=== PATIENT | female | born 1990 | race Caucasian/White ===

== ENCOUNTER → 2017-02-14 | Outpatient (CLI) | payer OTHER ==
--- NOTE | 2017-02-14 14:00 | US ---
EXAMINATION TYPE: US OB anatomy transabd DATE OF EXAM: 02/14/2017 1:14 PM COMPARISON: NONE HISTORY: O36.62XO Large For Dates Anatomy. Has not had an ultrasound yet with this TECHNIQUE: Transabdominal (TA) EXAM MEASUREMENTS: GESTATIONAL AGE / DATING Dates by LMP: (18 weeks/4 days) EDC: 07/14/2017 Dates by Current Scan: (17 weeks/4 days) EDC: 07/21/2017 SURVEY IUP: Single PLACENTA: Posterior PREVIA: No previa MAURICIO: 12.2 cm Normal CERVICAL LENGTH (transabdominal: norm > 3.0cm): 3.6 cm BIOMETRY PRESENTATION: Vertex LIE: Transverse lie with head maternal Left BPD: 3.8 cm 17 weeks / 5 days HC: 14.2 cm 17 weeks / 3 days AC: 11.9 cm 17 weeks / 4 days FL: 2.5 cm 17 weeks / 3 days ESTIMATED WEIGHT IN GRAMS: 198.7 grams ESTIMATED WEIGHT IN LBS/OZS: 0 lbs. 7 oz. WEIGHT PERCENTAGE BASED ON ESTABLISHED DATE: 5.2 % HC/AC: 1.2 FL/AC: 20.8 HEART RATE: 155 bpm RHYTHM: Normal ANATOMY SEEN (within normal limits): * Lateral Vent (< 1 cm) 0.8 cm * Cisterna Magna (< 1.1 cm) 0.3 cm * Nuchal Fold (< 0.6 cm) 0.2 cm * Cerebellum (varies with age) 1.8 cm Midline Falx Cavus Septi Pellucidi Stomach Situs Nose / Lips Diaphragm Kidneys (bilateral) Bladder Cord Insert Three Vessel Cord Longitudinal Spine Transverse Spine Arms (bilateral) Legs (bilateral) ANATOMY SEEN (does not appear within normal limits): Choroid Plexus (bilateral) ANATOMY NOT SEEN: Four Chamber Heart Outflow tracts: LVOT/RVOT Impression: Live single IUP seen measuring 17 weeks 4 days. Two cystic lesions seen in choroid plexus measuring 0.4 x 0.3 cm and 0.3 x 0.3 cm. Heart not well visualized due to early gestational age. OB callback scheduled for February 28.
== END | disposition home or self-care (01) ==
LOC: RADUSWWP 12:17
PROVIDERS: ATTEND Obstetrics & Gynecology
DX: O35.0XX0 Maternal care for (suspected) central nervous system malformation in fetus, not applicable or unspecified (principal); Z3A.17 17 weeks gestation of pregnancy
CPT/HCPCS: 76811

== ENCOUNTER → 2017-02-28 | Outpatient (CLI) | payer OTHER ==
--- NOTE | 2017-02-28 14:38 | US ---
EXAMINATION TYPE: US OB Call Back DATE OF EXAM: 02/28/2017 11:14 AM COMPARISON: Initial survey 02/14/2017 CLINICAL HISTORY: 26-year-old female rescan ANATOMY. Assess heart structures. TECHNIQUE: Transabdominal scanning. FINDINGS: GESTATIONAL AGE / DATING Dates by Initial Survey Scan: (19 weeks/4 days) EDC: 07/21/2017 HEART RATE: 170 bpm RHYTHM: Normal ANATOMY SEEN (second anatomic survey look): Four Chamber Heart LVOT ANATOMY SEEN BUT DOES NOT APPEAR NORMAL: Choroid Plexus (bilateral): single posterior (right) choroid cyst seen = 6mm vs two seen previously measuring up to 4 mm. ANATOMY SUBOPTIMALLY VISUALIZED: RVOT IMPRESSION: 1. Now, a single choroid plexus cyst is seen measuring 6 mm versus the two previous cysts measuring u p to 4 mm. While choroid plexus cysts can serve as a soft marker for aneuploidy, they often resolve s pontaneously at 24 weeks. Further genetics consultation as clinically indicated. 2. The RVOT remains suboptimally visualized on the provided images. The lump roller notes normal appe arance during real-time scanning. 3. Otherwise, the four-chamber heart and LVOT appear normal.
== END | disposition home or self-care (01) ==
LOC: RADUSWWP 10:42
PROVIDERS: ATTEND Obstetrics & Gynecology
DX: Q04.6 Congenital cerebral cysts (principal)

== ENCOUNTER 2017-07-10 08:00 | Inpatient (IN) | payer OTHER ==
--- NOTE | 2017-07-09 20:19 | P.HPOB ---
History of Present Illness H&P Date: 07/09/17 Chief Complaint: Scheduled repeat cesaren with bilateral tubal ligation This is a 26 y.o. female, 2, para 1, with an estimated date of confinement of 07/14/2017, estimated gestational age of 39-3/7 weeks, who presents for repeat section with bilateral tubal ligation. She admits to good movement and irregular contractions. She denies rupture of membranes. course has been complicated by anxiety. labs: Rubella-immune RPR-NR HIV-NR Blood type-A+ Antibody screen-neg Random glucose-89 Hemoglobin-13.2 Quad-neg 1 hr. 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 Social Hx: Single, unemployed. Review of Systems Constitutional: Denies chills, Denies fever Eyes: denies blurred vision, denies pain Ears, nose, mouth and throat: Denies headache, Denies sore throat Cardiovascular: Denies chest pain, Denies shortness of breath Respiratory: Denies cough Gastrointestinal: Reports abdominal pain (irreg. contractions) Genitourinary: Reports pelvic pain, Reports Musculoskeletal: Reports low back pain Integumentary: Denies pruritus, Denies rash Neurological: Denies numbness, Denies weakness Psychiatric: Reports anxiety Past Medical History Past Medical History: GERD/Reflux History of Any Multi-Drug Resistant Organisms: None Reported Past Surgical History: Section Additional Past Surgical History / Comment(s): wisdom teeth removed in 2005 Past Anesthesia/Blood Transfusion Reactions: No Reported Reaction Past Psychological History: Anxiety Smoking Status: Never smoker Past Alcohol Use History: None Reported Past Drug Use History: None Reported - Past Family History Mother Family Medical History: Thyroid Disorder Medications and Allergies Home Medications Medication Instructions Recorded Confirmed Type Acyclovir 400 mg PO BID PRN 04/22/14 07/04/17 History Abu-Gthf-Lkwlj Acid 1 caplet PO DAILY 04/29/14 07/04/17 History [-U Capsule (formulary)] Allergies Allergy/AdvReac Type Severity Reaction Status Date / Time egg AdvReac Nausea & Verified 07/04/17 15:51 Vomiting & Diarrhea lactose AdvReac Nausea & Verified 07/04/17 15:51 Vomiting & Diarrhea Exam Osteopathic Statement: *. No significant issues noted on an osteopathic structural exam other than those noted in the History and Physical/Consult. HEENT: within normal limits Heart: regular rate and rhythm Lungs: clear to auscultation bilaterally Abdomen: heart tones: 140's by doppler Extremities: Neg. Trinh's Cervix: 1 cm/50%/-2. Assessment and Plan (1) 39 weeks gestation of Status: Acute (2) Family planning Status: Acute Plan: Proceed with repeat low transverse section with bilateral partial salpingectomy. I have discussed the risks, benefits, and alternative therapies for the above- mentioned procedure and for both sedation/anesthesia as well as necessary blood products administration, if indicated, as they pertain to this patient. The patient has indicated her understanding and acceptance of the risks and procedures discussed.
[2017-07-10] MEDS ORDERED: LACTATED RINGERS 1,000 ML IV SCH (11:06)
[2017-07-10] MEDS ORDERED: CITRIC ACID-SODIUM CITRATE 15 ML CUP PO ONE (11:06)
[2017-07-10] MEDS ORDERED: LIDOCAINE 1% 20 ML VIAL (10MG/ML) FOR IV START INTRADERMA PRN (11:06)
[2017-07-10] MEDS ORDERED: ceFAZolin 2 GM in SODIUM CHLORIDE 0.9% 100 ML IVPB ONE (11:06)
[2017-07-10 11:15] LABS: Basophils % (A) 0 %; CH 28.6; CHCM 33.4; Eosinophils # (A) 0.3 k/uL (0-0.7); Eosinophils % (A) 3 %; HCT 34.5 % (34.0-46.0); HDW 2.86; HGB 12.1 gm/dL (11.4-16.0); Luc # (Auto) 0.24; Luc % (Auto) 2; Lymphocytes # (A) 1.9 k/uL (1.0-4.8); Lymphocytes % (A) 16 %; MCH 30.2 pg (25.0-35.0); MCHC 35.1 g/dL (31.0-37.0); MCV 86.2 fL (80.0-100.0); Mean Platelet Volume 8.6; Monocytes # (A) 0.6 k/uL (0-1.0); Monocytes % (A) 5 %; Neutrophils # (A) 8.6 k/uL (1.3-7.7); Neutrophils % (A) 73 %; RBC 4.01 m/uL (3.80-5.40); RDW 13.3 % (11.5-15.5); WBC 11.7 k/uL (3.8-10.6); WBC (Perox) 11.82
[2017-07-10] MEDS: LACTATED RINGERS 1,000 ML IV ONE ×2 (11:28→11:51)
[2017-07-10 12:19] VITALS: BMI 23.6
[2017-07-10] MEDS ORDERED: fentaNYL (PF) 50 MCG/ML 2 ML AMP ONE (12:19)
[2017-07-10] MEDS ORDERED: MORPHINE SULFATE (PF) 0.3 MG/0.3 ML SYR ONE (12:19)
[2017-07-10] MEDS ORDERED: OXYTOCIN 10 UNIT/ML 1 ML VIAL ONE (12:19)
[2017-07-10] MEDS ORDERED: ONDANSETRON 4 MG/2 ML VIAL ONE (12:19)
[2017-07-10] MEDS ORDERED: KETOROLAC 30 MG/ML 1 ML VIAL ONE (12:19)
[2017-07-10] MEDS ORDERED: NALBUPHINE 10 MG/ML AMPUL ONE (12:19)
[2017-07-10] MEDS ORDERED: diphenhydrAMINE 50 MG/ML 1 ML VIAL IVP PRN ×3 (12:58→13:24)
[2017-07-10] MEDS ORDERED: NALOXONE 0.4 MG/ML 1 ML VIAL IV PRN ×2 (12:58→13:24)
[2017-07-10] MEDS ORDERED: ONDANSETRON 4 MG/2 ML VIAL IVP PRN ×2 (12:58→13:24)
[2017-07-10] MEDS ORDERED: KETOROLAC 30 MG/ML 1 ML VIAL IVP PRN ×2 (12:58→13:24)
--- NOTE | 2017-07-10 13:12 | P.OP ---
Date of Procedure: 07/10/17 Preoperative Diagnosis: 1. Intrauterine at 39-3/7 weeks. 2. History of previous section. 3. Family-planning. Postoperative Diagnosis: Same plus breech presentation Procedure(s) Performed: Repeat low transverse section with bilateral partial salpingectomy Implants: Anesthesia: spinal (Duramorph) Surgeon: Ruchi Merritt Upscale Security Officer #1: Yvette Mckinney Estimated Blood Loss (ml): 400 Pathology: other (Placenta, portions of right and left fallopian tubes) Condition: stable Disposition: floor Indications for Procedure: This is a 26-year-old female 2 para 1 at 39-3/7 weeks who presents to labor and delivery for scheduled repeat section with bilateral partial salpingectomy. I have discussed the risks, benefits, and alternative therapies for the above- mentioned procedure and for both sedation/anesthesia as well as necessary blood products administration, if indicated, as they pertain to this patient. The patient has indicated her understanding and acceptance of the risks and procedures discussed. Operative Findings: A viable female infant is noted in the jill breech presentation with scores of 8 at 1 minute and 9 at 5 minutes and infant weight of 6 lbs. 9 oz. Normal uterus tubes and ovaries are noted. Description of Procedure: The patient is taken to the operating room where she is placed in the dorsal supine position with leftward tilt after spinal Duramorph anesthesia is given. She is prepped and draped in the normal sterile fashion. Skin was tested and found to be adequately anesthetized. A Pfannenstiel skin incision was made with a scalpel removing the previous laparotomy scar. A second knife was used to carry the incision down to the underlying layer of fascia. The fascia was nicked in the midline with a scalpel and then extended laterally bilaterally with Guthrie scissors. The anterior lip of the fascia was grasped with 2 Elida clamps and then dissected off the underlying rectus muscle in the midline with Guthrie scissors. The inferior aspect of the fascial incision was grasped with 2 Elida clamps and dissected off the underlying rectus muscle and the midline with Guthrie scissors. Next the peritoneum layer was tented up with 2 hemostats and then entered sharply with the scalpel. The incision is extended superiorly and inferiorly with Metzenbaum scissors. Next a DeLee retractor is placed. The vesicouterine peritoneum is entered sharply with Metzenbaum scissors and extended laterally bilaterally with Metzenbaum scissors and then the bladder flap is pushed inferiorly. The lower uterine segment is incised in transverse fashion with the scalpel and then bluntly entered with a hemostat. Clear fluid is noted. The incision was then extended laterally bilaterally with 2 fingers. Next the 's buttocks is delivered through the incision low by each leg and each arm in a flexed position. Next the head is delivered in a flexed position and nose and mouth are bulb suctioned after delivery. Cord is clamped and cut. is taken to warmer by nursing staff. Uterine fundus is gently massaged and placenta is delivered manually. Uterus is exteriorized and cleared of all clots and debris. Uterine incision is closed with 0 Vicryl suture in a running locked fashion. A second layer of 0 Vicryl suture is used in a running fashion for hemostasis. Once adequate hemostasis as assured, the vesicouterine peritoneum is reapproximated with 2-0 Vicryl suture in a running fashion. Posterior cul-de-sac is suctioned of all clots and debris. Next attention is turned to the fallopian tubes. The right fallopian tube is grasped in the midportion with a hemostat. The mesosalpinx is entered with Bovie cautery. Next 0 Vicryl suture is tied 2 times around both the proximal and distal portion of the tube. The knuckle of tube was then removed with Metzenbaum scissors. The ends of the tubes are cauterized with Bovie cautery. Excellent hemostasis is noted. Next the same procedure is carried out on the left fallopian tube. Excellent hemostasis is noted. Uterus is returned to the abdomen. Incision is noted to be hemostatic. Both sites are noted to be hemostatic. Peritoneal layer is closed with 0 Vicryl suture in a running fashion. Muscle layer is reapproximated with 0 Vicryl suture in interrupted fashion. Fascia layer is then closed with 0 PDS suture with 2 sutures meeting in the midline and the knots buried in either side and in the midline. The subcutaneous tissue was then closed with 2-0 Vicryl suture. Skin layer was then closed with karyna. All sponge and needle counts are correct. The patient is taken to recovery room in stable condition.
[2017-07-10] MEDS ORDERED: OXYTOCIN 20 UNITS/1000 ML NS 1,000 ML IV SCH (13:24)
[2017-07-10] MEDS ORDERED: diphenhydrAMINE 25 MG CAP PO PRN (13:24)
[2017-07-10] MEDS ORDERED: diphenhydrAMINE 50 MG CAP PO PRN (13:24)
[2017-07-10] MEDS ORDERED: ACETAMINOPHEN TAB 325 MG TAB PO PRN (13:24)
[2017-07-10] MEDS ORDERED: SIMETHICONE 80 MG CHEWABLE PO PRN (13:24)
[2017-07-10] MEDS ORDERED: ZOLPIDEM 5 MG TAB PO PRN (13:24)
[2017-07-10] MEDS ORDERED: Acetaminophen-Codeine 300-30mg TAB PO PRN ×2 (13:24)
[2017-07-10] MEDS ORDERED: LANOLIN CREAM 5 GM TUBE TOPICAL PRN (13:24)
[2017-07-10] MEDS ORDERED: METOCLOPRAMIDE 5 MG/ML 2 ML VIAL IVP PRN (13:24)
[2017-07-10] MEDS: LACTATED RINGERS 1,000 ML IV SCH (21:24)
[2017-07-10] MEDS: SENNOSIDES-DOCUSATE SODIUM 1 EACH TAB PO SCH (21:24)
[2017-07-11 01:18] VITALS: RESP 16
[2017-07-11] MEDS: LACTATED RINGERS 1,000 ML IV SCH ×3 (01:27→20:58)
[2017-07-11] MEDS: IBUPROFEN 600 MG TAB PO PRN ×3 (02:57→19:58)
[2017-07-11] MEDS: SENNOSIDES-DOCUSATE SODIUM 1 EACH TAB PO SCH ×3 (02:58→19:58)
[2017-07-11 07:58] LABS: Basophils % (A) 0 %; CH 28.7; CHCM 33.2; Eosinophils # (A) 0.3 k/uL (0-0.7); Eosinophils % (A) 2 %; HCT 30.8 % (34.0-46.0); HDW 2.83; HGB 10.1 gm/dL (11.4-16.0); Luc # (Auto) 0.21; Luc % (Auto) 2; Lymphocytes # (A) 1.4 k/uL (1.0-4.8); Lymphocytes % (A) 13 %; MCH 28.6 pg (25.0-35.0); MCHC 32.9 g/dL (31.0-37.0); Mean Platelet Volume 8.3; Monocytes # (A) 0.6 k/uL (0-1.0); Monocytes % (A) 5 %; Neutrophils # (A) 8.6 k/uL (1.3-7.7); Neutrophils % (A) 78 %; RBC 3.54 m/uL (3.80-5.40); RDW 13.4 % (11.5-15.5); WBC (Perox) 11.62
--- NOTE | 2017-07-11 08:58 | P.PNOBGPC ---
Subjective - Subjective Principal diagnosis: Status post repeat section with tubal postoperative day #1 Interval history: Patient is doing well. She is ambulating and passing flatus. She denies any bowel movement yet. She is urinating without difficulty. Pain is fairly well controlled at this time. Lochia is decreasing. She is bottle feeding. Patient reports: Reports appetite normal, Reports voiding normally, Reports pain well controlled, Reports ambulating normally [place]: doing well, bottle feeding Objective - Vital Signs Latest vital signs: Vital Signs Temp Pulse Pulse Resp BP Pulse Ox 07/11/17 04:00 98.3 F 59 L 16 99/57 97 07/11/17 00:00 97.8 F 73 16 107/63 98 07/10/17 20:00 98.3 F 65 18 123/62 97 07/10/17 19:00 16 07/10/17 17:00 18 07/10/17 15:58 16 100 07/10/17 15:27 98.2 F 80 18 123/55 100 07/10/17 14:48 68 16 116/56 100 07/10/17 14:18 64 16 103/59 100 07/10/17 14:02 63 16 100/58 100 07/10/17 13:48 70 16 109/56 100 07/10/17 13:33 71 16 115/59 98 07/10/17 13:18 97.5 F L 67 16 110/53 100 07/10/17 10:25 97.4 F L 86 18 107/69 99 Intake and Output 07/10/17 07/11/17 07/11/17 22:59 06:59 14:59 Output Total 1600 Balance -1600 Output: Urine 1600 Other: Voiding Method Indwelling Catheter Toilet # Voids 1 1 - Exam Abdomen: Present: normal appearance, soft (Positive bowel sounds 4), tenderness (Mild). Absent: distention Incision: Present: normal, dry, intact. Absent: erythematous - Labs Labs: Abnormal Lab Results - Last 24 Hours (Table) 07/10/17 07/11/17 Range/Units 10:45 07:05 WBC 11.7 H 11.0 H (3.8-10.6) k/uL RBC 3.54 L (3.80-5.40) m/uL Hgb 10.1 L (11.4-16.0) gm/dL Hct 30.8 L (34.0-46.0) % Neutrophils # 8.6 H 8.6 H (1.3-7.7) k/uL Assessment and Plan (1) 39 weeks gestation of Current Visit: Yes Status: Acute Code(s): Z3A.39 - 39 WEEKS GESTATION OF SNOMED Code(s): 92233375 (2) Family planning Current Visit: Yes Status: Acute Code(s): Z30.09 - ENCOUNTER FOR OTH GENERAL CNSL AND ADVICE ON CONTRACEPTION SNOMED Code(s): 59183109 (3) delivery delivered Narrative/Plan: Impression is status post delivery postoperative day #1. Plan is to continue with postoperative care. Will advance diet as tolerated. Current Visit: Yes Status: Acute Code(s): O82 - ENCOUNTER FOR DELIVERY WITHOUT INDICATION SNOMED Code(s): 914384848
--- NOTE | 2017-07-11 13:15 | P.PN ---
Progress Note - Text 700 Anesthesia POD[ 1]. Patient is status post section under spinal anesthesia with intra-thecal preservative free morphine 300 g. Minimal pruritus, good post-op analgesia, and no headache or other complications.
[2017-07-12] MEDS: IBUPROFEN 600 MG TAB PO PRN ×2 (02:34→09:22)
--- NOTE | 2017-07-12 08:32 | P.DS ---
Providers Date of admission: 07/10/17 10:22 Expected date of discharge: 07/12/17 Attending physician: Ruchi Merritt Primary care physician: Stated None - Discharge Diagnosis(es) (1) 39 weeks gestation of Current Visit: Yes Status: Acute (2) Family planning Current Visit: Yes Status: Acute (3) delivery delivered Current Visit: Yes Status: Acute Hospital Course: Silverio is a 26-year-old female 2 para 1 at 39-3/7 weeks who presented for scheduled repeat section with tubal ligation. She underwent the above- noted procedure on 07/10/2017 and delivered a viable female in the breech presentation with scores of 8 at 1 minute and 9 at 5 minutes and weight of 6 lbs. 9 oz. Her course has been uncomplicated. She is bottle feeding. Lochia is decreasing. Pain is well-controlled with ibuprofen. Vital signs are stable. Abdomen is soft with fundus firm and nontender. Incision is clean dry and intact with karyna in place. Extremities show negative Homans. Impression is status post repeat low transverse section with bilateral partial salpingectomy post operative day #2. Plan is to discharge home today. Routine postoperative and instructions are given. She is given a prescription for ibuprofen. She is advised to follow up in the office in approximately 1 week for a postoperative check and in 6 weeks for check. She is advised to call the office if she has any further questions or concerns prior to her appointment time. Procedures: Repeat low transverse section with bilateral salpingectomy on 2016 Patient Condition at Discharge: Stable Plan - Discharge Summary New Discharge Prescriptions: New Ibuprofen [Motrin] 600 mg PO Q6HR PRN #60 tab PRN Reason: Mild Pain Or Fever >= 100.5 Continue Fcu-Bagg-Xkjai Acid [-U Capsule (formulary)] 1 caplet PO DAILY No Action Acyclovir 400 mg PO BID PRN PRN Reason: HERPSES OUTBREAK Discharge Medication List Acyclovir 400 mg PO BID PRN 04/22/14 [History] [id number] Acid [-U Capsule (formulary)] 1 caplet PO DAILY 04/29/14 [History] Ibuprofen [Motrin] 600 mg PO Q6HR PRN #60 tab 07/12/17 [Rx] Follow up Appointment(s)/Referral(s): Ruchi Merritt DO [Doctor of Osteopathic Medicine] - 1 Week Activity/Diet/Wound Care/Special Instructions: Instructions 1. Do not begin any exercise program for 3 weeks. 2. Do not resume sexual relations for 3 weeks or longer if uncomfortable. 3. You may take tub baths or showers at any time. 4. You may use tampons if desired after 3 weeks. 5. Keep the area of episiotomy (stitches) clean and dry. 6. If you are not nursing, wear a good fitting, supportive bra during the day and limit fluid intake for at least 1 week to prevent breast engorgement. 7. Call the office, [phone], within the next week to make appointment for your 6 week checkup if it has not already been made. 8. Report any of the following occurrences to the doctor promptly: a. Heavy, excessive bleeding b. Chills, fever c. Burning or frequency of urination d. Pain or redness and breasts if nursing e. Increasing pain or swelling in episiotomy (stitches). In addition to the above instructions, the following additional should be followed: 1. No heavy lifting or straining (exercising) until after 6 week checkup. 2. Keep abdominal incision clean and dry: You may wear a dressing if more comfortable. 3. Make office appointment for 10 days after going home or as instructed by her doctor. Discharge Disposition: HOME SELF-CARE
[2017-07-12 08:50] VITALS: BP 105/62; PULSE 91; TEMP 98.4
[2017-07-12] MEDS: SENNOSIDES-DOCUSATE SODIUM 1 EACH TAB PO SCH (09:22)
== END 2017-07-12 13:05 | disposition home or self-care (01) | DRG 765 ==
LOC: 4FBP 10:22
PROVIDERS: ADMIT Obstetrics & Gynecology; ATTEND Obstetrics & Gynecology
PROC: 0UB70ZZ Excision of Bilateral Fallopian Tubes, Open Approach (ICD-10-PCS; 2017-07-10)
PROC: 10D00Z1 Extraction of Products of Conception, Low, Open Approach (ICD-10-PCS; principal; 2017-07-10 12:32)
DX: O34.211 Maternal care for low transverse scar from previous cesarean delivery (principal); O98.52 Other viral diseases complicating childbirth; B00.9 Herpesviral infection, unspecified; O99.344 Other mental disorders complicating childbirth; F41.9 Anxiety disorder, unspecified; O32.1XX0 Maternal care for breech presentation, not applicable or unspecified; O99.62 Diseases of the digestive system complicating childbirth; K21.9 Gastro-esophageal reflux disease without esophagitis; Z37.0 Single live birth; Z3A.39 39 weeks gestation of pregnancy
CPT/HCPCS: 85025; 86850; 86900; 86901; 88302; 88307